=== PATIENT | female | born 1985 | race Hispanic/Latino ===

== ENCOUNTER 2019-12-30 16:02 | Emergency (ER) | payer SELFPAY ==
[2019-12-30] MEDS ORDERED: Acetaminophen 500 MG TAB ONE (16:30)
[2019-12-30 16:42] LABS: #Eosinphils 0.2 thou/uL (0.0-0.7); #Lymphocytes 1.9 thou/uL (1.20-3.40); #Monocytes 0.4 thou/uL (0.11-0.59); #Neutrophils 2.9 thou/uL (1.40-6.50); %Basophils 0.6 % (0.0-1.0); %Eosinophils 3.2 % (0.0-10.0); %Lymphocytes 35.1 % (21.0-51.0); %Monocytes 6.7 % (0.0-10.0); %Neutrophils 54.3 % (42.0-75.0); Hemoglobin 14.3 g/dL (12.0-16.0); Mean Corpuscular HGB CONC 33.7 g/dL (32.0-36.0); Mean Corpuscular Hemoglobin 31.9 pg (27.0-31.0); Mean Corpuscular Volume 94.7 fL (78.0-98.0); Mean Platelet Volume 8.5 fL (7.4-10.4); Platelet Count 165 thou/uL (130-400); RBC Distribution Width 11.4 % (11.5-14.5); Red Blood Cell (RBC) Count 4.49 mill/uL (4.20-5.40); White Blood Cell (WBC) Count 5.4 thou/uL (4.8-10.8)
[2019-12-30 16:56] LABS: Bacteria/HPF None Seen HPF (None Seen); Bilirubin Negative (Negative); Blood, Urine 2+ (Negative); Clarity Clear (Clear); Glucose, Urine (Dipstick) Normal (Negative); Leukocyte Negative Leu/uL (Negative); Nitrite Negative (Negative); Protein, Urine (Dipstick) 10 mg/dL (Neg-Trace); RBC/HPF Greater than 50 HPF (0-3); Squamous Epithelial 0-3 HPF (0-3); Urobilinogen Normal mg/dL (Less than 2); WBC/HPF 0-3 HPF (0-3)
--- NOTE | 2019-12-30 18:48 | ULT ---
PELVIC ULTRASOUND: Comparison: None History: Vaginal bleeding. Technique: Multiplanar grayscale and color doppler images were obtained in a transabdominal and trans vaginal pelvic ultrasound. Spectral analysis with waveform of the ovaries was performed. FINDINGS: The uterus is normal in size and appearance without focal abnormality. The endometrial stripe is norm al in thickness measuring 9 mm. No free fluid is seen in the pelvis. Both ovaries are normal in size. Both ovaries demonstrate normal internal flow. No gestational sac is seen within the uterus or in the adnexal regions. IMPRESSION: Unremarkable pelvic ultrasound. POS: [facility]
[2019-12-31 19:45] LABS: Chlamydia by PCR Not Detected (NotDetected); GC by PCR Not Detected (NotDetected)
== END 2019-12-30 18:42 | disposition home or self-care (01) ==
LOC: ERS 16:02
DX: O03.9 Complete or unspecified spontaneous abortion without complication (principal)
CPT/HCPCS: 76856; 81003; 81015; 84702; 85025; 86900; 86901; 87480; 87491; 87510; 87591; 87660

== ENCOUNTER 2023-08-25 14:52 | Emergency (ER) | payer SELFPAY ==
[2023-08-25 15:29] LABS: #Eosinphils 0.1 thou/uL (0.0-0.7); #Monocytes 0.4 thou/uL (0.11-0.59); #Neutrophils 4.1 thou/uL (1.40-6.50); %Basophils 0.5 % (0.0-1.0); %Eosinophils 1.4 % (0.0-10.0); %Lymphocytes 27.4 % (21.0-51.0); %Monocytes 6.7 % (0.0-10.0); %Neutrophils 63.8 % (42.0-75.0); Hematocrit 40.5 % (36.0-47.0); Hemoglobin 13.8 g/dL (12.0-16.0); Mean Corpuscular HGB CONC 34.1 g/dL (32.0-36.0); Mean Corpuscular Hemoglobin 31.4 pg (27.0-31.0); Mean Corpuscular Volume 92.3 fl (78.0-98.0); Mean Platelet Volume 10.6 fL (7.4-10.4); Platelet Count 181 10x3/uL (130-400); RBC Distribution Width 12.4 % (11.5-14.5); Red Blood Cell (RBC) Count 4.39 mill/uL (4.20-5.40); White Blood Cell (WBC) Count 6.4 10x3/uL (4.8-10.8)
[2023-08-25] MEDS ORDERED: Proparacaine 0.5% Opth 15 ML BOT ONE (15:41)
[2023-08-25] MEDS ORDERED: Fluorescein Opthalmic Strip ONE (15:43)
[2023-08-25 16:06] LABS: ALT (SGPT) 44 U/L (8-55); AST (SGOT) 20 U/L (5-34); Alkaline Phosphatase 79 U/L (40-110); Anion Gap 12 mmol/L (10-20); BUN (Urea Nitrogen) 9 mg/dL (7.0-18.7); Bilirubin, Total 0.3 mg/dL (0.2-1.2); Calc. Creatinine Clearance 0 mL/min (70-130); Carbon Dioxide 24 mmol/L (22-29); Chloride 105 mmol/L (98-107); Estimated GFR 86; Globulin 2.7 g/dL (2.4-3.5); Glucose 95 mg/dL (70-105); Potassium 3.5 mmol/L (3.5-5.1); Protein, Total 6.7 g/dL (6.0-8.3); Sodium 137 mmol/L (136-145)
[2023-08-25] MEDS ORDERED: Timolol 0.5% Ophth Soln 5 ml Bottle EA EYE SCH (17:00)
[2023-08-25] MEDS ORDERED: Brimonidine Tartrate 0.2% Ophth Soln 5 ml Bottle L EYE SCH (17:00)
[2023-08-25] MEDS ORDERED: Timolol 0.5% Ophth Soln 5 ml Bottle L EYE SCH (17:00)
[2023-08-25] MEDS ORDERED: AcetaZOLAMIDE 250 MG TAB PO SCH (17:00)
== END 2023-08-25 17:00 | disposition home or self-care (01) ==
LOC: ERS 14:52
DX: H40.212 Acute angle-closure glaucoma, left eye (principal); F17.210 Nicotine dependence, cigarettes, uncomplicated
CPT/HCPCS: 80053; 85025; 93005

== ENCOUNTER 2025-05-22 08:28 | Emergency (ER) | payer BC, SELFPAY ==
[2025-05-22] MEDS ORDERED: Lidocaine 1% w/Epinephrine 1:100K 20 ML VIAL ONE (08:59)
[2025-05-22] MEDS ORDERED: Boostrix 0.5 ML (Tdap) VIAL (>/=7 yrs of age) ONE (09:21)
== END 2025-05-22 09:40 | disposition home or self-care (01) ==
LOC: ERS 08:28
DX: L02.412 Cutaneous abscess of left axilla (principal); F17.210 Nicotine dependence, cigarettes, uncomplicated
CPT/HCPCS: 10060; 90471; 90715

== ENCOUNTER 2025-05-25 05:10 | Emergency (ER) | payer BC ==
[2025-05-25] MEDS ORDERED: Acetaminophen 500 MG TAB ONE (06:09)
== END 2025-05-25 08:22 | disposition home or self-care (01) ==
LOC: ERS 05:10
DX: B34.9 Viral infection, unspecified (principal); F17.210 Nicotine dependence, cigarettes, uncomplicated
CPT/HCPCS: 71045; 87081; 87428; 87430